=== PATIENT | male | born 1990 | race Hispanic/Latino ===

== ENCOUNTER 2018-09-24 18:34 | Emergency (ER) | payer SELFPAY ==
--- NOTE | 2018-09-24 18:55 | Emergency Department Report ---
Chief Complaint: Skin/Abscess/Foreign Body Stated Complaint: LT LEG PAIN (INFECTION) Time Seen by Provider: 09/24/18 18:53 - HPI History of Present Illness: This is a 28 y.o. M. that presents to the ER with an abscess to left buttock x 1 week. Patient states he was incarcerated when it appeared. He was taking antibiotics and pain medication. Patient states it was improving while there but worse when he got and no longer taking antibiotics. MSE screening note: Focused history and physical exam performed. Due to findings the following was ordered: This initial assessment/diagnostic orders/clinical plan/treatment(s) is/are subject to change based on patient's health status, clinical progression and re- assessment by fellow clinical providers in the ED. Further treatment and workup at subsequent clinical providers discretion. Patient/guardians urged not to elope from the ED as their condition may be serious if not clinically assessed and managed. Initial orders include: ACC for further evaluation. ED Disposition for MSE Condition: Stable
[2018-09-24] MEDS ORDERED: XYLOCAINE 1% MPF 5 mL INFILTRATI ONE (22:02)
[2018-09-24] MEDS ORDERED: ZOFRAN IV ONE (22:02)
[2018-09-24] MEDS ORDERED: MORPHINE IV ONE (22:02)
[2018-09-24] MEDS ORDERED: CLEOCIN 900 MG/50 mL 900 MG/50 ML BAG IV ONE (22:02)
[2018-09-24] MEDS ORDERED: XYLOCAINE 2% INFILTRATI ONE ×2 (22:17→22:18)
[2018-09-24 22:41] LABS: Basophils # (Auto) 0.1 K/mm3 (0.0-0.1); Basophils % (Auto) 0.6 % (0.0-1.8); Eosinophils # (Auto) 0.3 K/mm3 (0.0-0.4); Hematocrit 44.1 % (35.5-45.6); Hemoglobin 15.5 gm/dl (11.8-15.2); Lymphocytes # (Auto) 2.2 K/mm3 (1.2-5.4); Mean Corpuscular HGB Conc 35 % (32-34); Mean Corpuscular Volume 94 fl (84-94); Monocytes # (Auto) 1.2 K/mm3 (0.0-0.8); Monocytes % (Auto) 9.4 % (0.0-7.3); Platelet Count 226 K/mm3 (140-440); Red Blood Count 4.71 M/mm3 (3.65-5.03); Red Cell Distribution Width 12.8 % (13.2-15.2)
[2018-09-24 22:57] LABS: Albumin 3.6 g/dL (3.9-5); Hemolysis Index 14
[2018-09-24 23:15] LABS: Bilirubin,Direct < 0.2 mg/dL (0-0.2)
[2018-09-24 23:59] LABS: Alanine Aminotransferase 17 units/L (7-56); BUN/Creatinine Ratio 14; Blood Urea Nitrogen 10 mg/dL (9-20)
[2018-09-25] MEDS ORDERED: NORCO 7.5/325 PO ONE (00:25)
[2018-09-25] MEDS ORDERED: TORADOL IV ONE (00:25)
--- NOTE | 2018-09-25 00:30 | Emergency Department Report ---
- General Chief complaint: Skin/Abscess/Foreign Body Stated complaint: LT LEG PAIN (INFECTION) Time Seen by Provider: 09/24/18 18:53 Source: patient Mode of arrival: Ambulatory Limitations: No Limitations - History of Present Illness Initial comments: Patient is 28-year-old white male with no past medical history presents to the ED, an acute onset persistent severe pain and swelling and erythematous macular rash on his left buttocks the last 1 week possibly longer. Patient states that in the last 2 days the swelling and the pain has worsened. Patient denies dizziness, fever, chills, nausea, vomiting, numbness and tingling of lower extremities bilaterally, dizziness or abdominal pain. MD complaint: rash, insect bite/sting, abscess/boil (buttocks) -: Sudden, week(s) (1) Tetanus Up to Date: yes Location: buttocks (left) Severity: severe Severity scale (0 -10): 8 Quality: aching, sharp, constant Consistency: constant Improves with: none Worsens with: palpation, movement Context: other (unknown) Associated symptoms: itching, malaise, athralgias Treatments Prior to Arrival: none, attempted to drain pus at - Related Data Previous Rx's Medication Instructions Recorded Last Taken Type Acetaminophen/Codeine [Tylenol 1 tab PO Q6H PRN #15 tab 09/25/18 Unknown Rx /Codeine # 3 tab] Clindamycin [Clindamycin CAP] 300 mg PO Q8HR #60 capsule 09/25/18 Unknown Rx Ibuprofen [Motrin] 400 mg PO Q8H PRN #20 tablet 09/25/18 Unknown Rx Ondansetron [Zofran Odt] 4 mg PO Q6HR #15 tab.rapdis 09/25/18 Unknown Rx Sulfamethoxazole/Trimethoprim 1 each PO Q12H #20 tablet 09/25/18 Unknown Rx [Bactrim DS TAB] Allergies Allergy/AdvReac Type Severity Reaction Status Date / Time No Known Allergies Allergy Unverified 09/24/18 22:16 Abscess Boil HPI - HPI Chief Complaint: Skin/Abscess/Foreign Body Stated Complaint: LT LEG PAIN (INFECTION) Time Seen by Provider: 09/24/18 18:53 Duration: >1 Week Location: Other (left gluteus) Severity: Severe History: Yes Pain, Yes Purulent Drainage, Yes Previous History, No Fever, No Numbness, No Foreign Body, No Insect Bite HPI: Patient is 28-year-old white male with no past medical history presents to the ED, an acute onset persistent severe pain and swelling and erythematous macular rash on his left buttocks the last 1 week possibly longer. Patient states that in the last 2 days the swelling and the pain has worsened. Patient denies dizziness, fever, chills, nausea, vomiting, numbness and tingling of lower extremities bilaterally, dizziness or abdominal pain. Home Medications: Previous Rx's Medication Instructions Recorded Last Taken Type Acetaminophen/Codeine [Tylenol 1 tab PO Q6H PRN #15 tab 09/25/18 Unknown Rx /Codeine # 3 tab] Clindamycin [Clindamycin CAP] 300 mg PO Q8HR #60 capsule 09/25/18 Unknown Rx Ibuprofen [Motrin] 400 mg PO Q8H PRN #20 tablet 09/25/18 Unknown Rx Ondansetron [Zofran Odt] 4 mg PO Q6HR #15 tab.rapdis 09/25/18 Unknown Rx Sulfamethoxazole/Trimethoprim 1 each PO Q12H #20 tablet 09/25/18 Unknown Rx [Bactrim DS TAB] Allergies/Adverse Reactions: Allergies Allergy/AdvReac Type Severity Reaction Status Date / Time No Known Allergies Allergy Unverified 09/24/18 22:16 ED Review of Systems ROS: Stated complaint: LT LEG PAIN (INFECTION) Other details as noted in HPI Comment: All other systems reviewed and negative Constitutional: no symptoms reported, see HPI, diaphoresis, malaise Eyes: as per HPI. denies: eye pain, eye discharge, vision change ENT: as per HPI. denies: ear pain, throat pain, dental pain, hearing loss, congestion Respiratory: no symptoms reported, see HPI. denies: cough, orthopnea, shortness of breath, SOB with exertion, SOB at rest Cardiovascular: as per HPI. denies: chest pain, palpitations, dyspnea on exertion, edema, syncope, paroxysmal nocturnal dyspnea Endocrine: no symptoms reported, see HPI. denies: excessive sweating, flushing, intolerance to cold, intolerance to heat, increased hunger, increased thirst, increased urine, unexplained weight gain Gastrointestinal: as per HPI. denies: abdominal pain, nausea, vomiting, diarrhea, constipation, hematemesis, melena, hematochezia Genitourinary: as per HPI. denies: urgency, dysuria, frequency, hematuria, discharge, testicular pain, testicular mass Musculoskeletal: as per HPI, arthralgia, myalgia Skin: as per HPI, rash, change in color (erythematous swollen fluctuant rash), pruritus Neurological: as per HPI. denies: headache, weakness, numbness, paresthesias, confusion, abnormal gait, vertigo Psychiatric: as per HPI. denies: auditory hallucinations, visual hallucinations, homicidal thoughts Hematological/Lymphatic: as per HPI ED Past Medical Hx - Past Medical History Previous Medical History?: No - Surgical History Past Surgical History?: No - Social History Smoking Status: Current Every Day Smoker Substance Use Type: None - Medications Home Medications: Home Medications Medication Instructions Recorded Confirmed Last Taken Type Acetaminophen/Codeine [Tylenol 1 tab PO Q6H PRN #15 tab 09/25/18 Unknown Rx /Codeine # 3 tab] Clindamycin [Clindamycin CAP] 300 mg PO Q8HR #60 capsule 09/25/18 Unknown Rx Ibuprofen [Motrin] 400 mg PO Q8H PRN #20 tablet 09/25/18 Unknown Rx Ondansetron [Zofran Odt] 4 mg PO Q6HR #15 tab.rapdis 09/25/18 Unknown Rx Sulfamethoxazole/Trimethoprim 1 each PO Q12H #20 tablet 09/25/18 Unknown Rx [Bactrim DS TAB] ED Physical Exam - General Limitations: No Limitations General appearance: alert, in no apparent distress - Head Head exam: Present: atraumatic, normocephalic, normal inspection - Eye Eye exam: Present: normal appearance, PERRL, EOMI Pupils: Present: normal accommodation - ENT ENT exam: Present: normal exam, normal orophraynx, mucous membranes moist, TM's normal bilaterally, normal external ear exam - Neck Neck exam: Present: normal inspection, full ROM. Absent: tenderness, meningismus, lymphadenopathy, thyromegaly - Respiratory Respiratory exam: Present: normal lung sounds bilaterally. Absent: respiratory distress, wheezes, rales, rhonchi, chest wall tenderness, accessory muscle use, decreased breath sounds - Cardiovascular Cardiovascular Exam: Present: regular rate, normal heart sounds. Absent: normal rhythm, bradycardia, tachycardia, irregular rhythm, systolic murmur, diastolic murmur - GI/Abdominal GI/Abdominal exam: Present: soft, normal bowel sounds. Absent: guarding, hyperactive bowel sounds - Rectal Rectal exam: Present: deferred - Extremities Exam Extremities exam: Present: normal inspection, full ROM, normal capillary refill. Absent: tenderness, pedal edema, joint swelling, calf tenderness, other - Back Exam Back exam: Present: normal inspection, full ROM. Absent: tenderness, CVA tenderness (R), CVA tenderness (L), muscle spasm, paraspinal tenderness, vertebral tenderness - Neurological Exam Neurological exam: Present: alert, oriented X3, CN II-XII intact, normal gait, reflexes normal - Psychiatric Psychiatric exam: Present: normal affect, anxious - Skin Skin exam: Present: warm, dry, intact, rash (erythematous maculopapular fluctuant rash on the left gluteus), erythema ED Course - Reevaluation(s) Reevaluation #1: 09/25/18 00:33 Patient is alert and oriented 3 and is not in distress with normal vital signs. Patient was treated for pain and labs were drawn. Patient received clindamycin 900 mg IV 1 with pain medications. The left gluteus abscess was drained and packed, and patient tolerated the procedure well. Lab test results were reviewed and are significant for leukocytosis of 13,200, and the rest of the lab test results adamant nonactionable. Patient was discharged home on pain medications and antibiotics and advised to follow-up with his primary care physician in 7-10 days for reevaluation. Patient is advised to return to the ED immediately if symptoms get worse, otherwise return to the ED in 2 days for packing removal. 09/25/18 00:34 - I & D Left Buttocks Type of Procedure: Simple Site: left gluteus Blade Size: 11 I & D Procedure: betadine prep, sterile drapes applied, sterile dressing applied Progress: The site was cleaned thoroughly and sterilized protocol. There was anesthetized with lidocaine 1% solution that she typically unassociated in the local area. The abscess wound was incised and drained thoroughly, braking and debris and tissue was, and flushed with normal saline solution. The wound was then packed with iodoform gauze, and dressed appropriately. Patient was discharged home on pain medications and antibiotics and advised to return to the ED in 2 days for wound recheck and packing removal. Patient tolerated procedure well. ED Medical Decision Making - Lab Data Result diagrams: 09/24/18 22:20 09/24/18 22:20 - Medical Decision Making Patient is alert and oriented 3 and is not in distress with normal vital signs. Patient was treated for pain and labs were drawn. Patient received clindamycin 900 mg IV 1 with pain medications. The left gluteus abscess was drained and packed, and patient tolerated the procedure well. Lab test results were reviewed and are significant for leukocytosis of 13,200, and the rest of the lab test results adamant nonactionable. Patient was discharged home on pain medications and antibiotics and advised to follow-up with his primary care physician in 7-10 days for reevaluation. Patient is advised to return to the ED immediately if symptoms get worse, otherwise return to the ED in 2 days for packing removal. - Differential Diagnosis cellulitis, cutaneous abscess of buttock Critical care attestation.: If time is entered above; I have spent that time in minutes in the direct care of this critically ill patient, excluding procedure time. ED Disposition Clinical Impression: Cellulitis and abscess of buttock, Hidradenitis suppurativa Disposition: - TO HOME OR SELFCARE Is pt being admited?: No Does the pt Need Aspirin: No Condition: Stable Instructions: Cellulitis (ED), Abscess (ED) Additional Instructions: Take medications with food, drink plenty of fluids and follow up with your primary care physician is advised in 7-10 days. Return to the ED in 2 days for wound recheck and packing removal. Otherwise return to the ED immediately if symptoms get worse. Prescriptions: Sulfamethoxazole/Trimethoprim [Bactrim DS TAB] 1 each PO Q12H #20 tablet Clindamycin [Clindamycin CAP] 300 mg PO Q8HR #60 capsule Ibuprofen [Motrin] 400 mg PO Q8H PRN #20 tablet PRN Reason: Pain , Severe (7-10) Acetaminophen/Codeine [Tylenol /Codeine # 3 tab] 1 tab PO Q6H PRN #15 tab PRN Reason: Pain , Severe (7-10) Ondansetron [Zofran Odt] 4 mg PO Q6HR #15 tab.rapdis Referrals: INGE ORRREINIERROBINSON MD DIANE [Primary Care Provider] - 3-5 Days Time of Disposition: 00:41 Print Language: SERBIAN
[2018-09-25 01:13] VITALS: BP 106/70
== END 2018-09-25 01:12 | disposition home or self-care (01) ==
LOC: ED 18:34
DX: L03.317 Cellulitis of buttock (principal); L02.31 Cutaneous abscess of buttock; L73.2 Hidradenitis suppurativa; F17.200 Nicotine dependence, unspecified, uncomplicated
CPT/HCPCS: 10060; 36415; 80048; 80076; 85025; 87040; 96365; 96375; 99283; J1885; J2270; J2405